=== PATIENT | female | born 1965 | race Caucasian/White ===

== ENCOUNTER → 2020-01-06 13:53 | Outpatient (CLI) | payer OTHER, SELFPAY ==
[2020-01-06 15:20] LABS: Hematocrit 36.3 % (36-46); Hemoglobin 12.7 g/dL (12.0-16.0)
[2020-01-06 16:51] LABS: Alanine Aminotransferase 17 IU/L (<35); Albumin Globulin Ratio 1.5 (1.0-2.8); Alkaline Phosphatase 49 U/L (38-126); Aspartate Aminotransferase 25 IU/L (14-36); Bilirubin Total 0.2 mg/dL (0.2-1.3); Blood Urea Nitrogen 18 mg/dL (7-17); Calcium 9.4 mg/dL (8.4-10.2); Carbon Dioxide 28 mmol/L (22-32); Chloride 103 mmol/L (98-107); Estimated Glomerular Filt Rate > 60.0 mL/min (>60); Globulin 2.6 g/dL (1.7-4.1); Glucose 140 mg/dL (70-100); HEMOLYSIS < 15 (0-50); Potassium 4.2 mmol/L (3.4-5.1); Sodium 138 mmol/L (137-145); Total Protein 6.6 g/dL (6.3-8.2)
[2020-01-06 16:53] LABS: C-Reactive Protein Quant < 0.5 mg/dL (<1.0)
[2020-01-06 16:57] LABS: NT-proBNP (BNP-Adult 18+) 58 pg/mL (<125)
[2020-01-06 17:22] LABS: Thyroid Stimulating Hormone 1.24 uIU/mL (0.47-4.68)
[2020-01-06 18:22] LABS: Erythrocyte Sedimentation Rate 6 MM/HR (0-20)
== END ==
PROVIDERS: PCP Naturopath; Referring Provider Nurse Practitioner Family; Visit Provider Nurse Practitioner Family
DX: R60.0 Localized edema (principal)
CPT/HCPCS: 36415; 80053; 83880; 84443; 85014; 85018; 85651; 86140

== ENCOUNTER → 2020-02-10 14:39 | Outpatient (CLI) | payer OTHER, SELFPAY | PROVIDERS: PCP Naturopath; Referring Provider Internal Medicine; Visit Provider Internal Medicine | DX: M85.88 Other specified disorders of bone density and structure, other site (principal); Z78.0 Asymptomatic menopausal state; C50.911 Malignant neoplasm of unspecified site of right female breast; C77.3 Secondary and unspecified malignant neoplasm of axilla and upper limb lymph nodes | CPT/HCPCS: 77080 ==

== ENCOUNTER → 2022-08-06 15:09 | Outpatient (CLI) | payer OTHER, SELFPAY ==
--- NOTE | 2022-08-06 | DI.MRI.S_ITS ---
PROCEDURE: MR LUMBAR SPINE WO CON INDICATIONS: Radiculopathy, lumbar region TECHNIQUE: Noncontrast sagittal T1 spin echo and T2 fast echo, sagittal STIR, and T2 fast spin echo through the lumbar spine. In cases with scoliosis, additional coronal T2 fast spin echo may be performed. COMPARISON: None. FINDINGS: Image quality: Excellent. Alignment and Curvature: There is normal bony alignment. Bone Marrow: Marrow is of normal overall signal. No acute vertebral body compression fractures. Spinal Cord: Conus medullaris terminates at the L1-L2 level. Visualized cord demonstrates normal signal and size. Paraspinous Soft Tissues: No paravertebral masses. Discs: Minimal to mild desiccation is present throughout the lumbar spine. L1-L2: No disc bulge, spinal stenosis or foraminal narrowing. L2-L3: Minimal disc bulge without spinal stenosis. No foraminal narrowing. Minimal epidural lipomatosis. Mild facet and ligamentum flavum hypertrophy. L3-L4: Minimal disc bulge with minimal spinal stenosis. Minimal bilateral foraminal narrowing with facet and ligamentum flavum hypertrophy. L4-L5: Mild disc bulge with minimal to mild spinal stenosis. Nbah-[id number] right foraminal narrowing with facet and ligamentum flavum hypertrophy. L5-S1: Mild disc bulge with mild spinal stenosis. No foraminal narrowing. IMPRESSION: Early degenerative changes most notable at L4-5. Dictated by: Shayna Levine M.D. on 08/06/2022 at 18:09 Approved by: Shayna Levine M.D. on 08/06/2022 at 18:12
== END ==
PROVIDERS: PCP Nurse Practitioner Family; Referring Provider Nurse Practitioner Family; Visit Provider Nurse Practitioner Family
DX: M47.26 Other spondylosis with radiculopathy, lumbar region (principal)
CPT/HCPCS: 72148

== ENCOUNTER 2024-12-15 15:30 | Outpatient (RCR) | payer OTHER, SELFPAY ==
--- NOTE | 2024-10-06 16:54 | PT.OIE ---
Current Diagnoses Cervicogenic headache (10/06/24) Past Medical History (Last Reviewed 12/20/21 @ 15:00 by Russ Manuel MD) Behaviorally induced insufficient sleep syndrome Obstructive sleep apnea of adult Visit Care Team Role Provider Type MJ Valencia Attending Provider Non-Staff Family Provider Primary Care Provider Referring Provider Specialty: Medical Address: [address] [place] [address], [place], [address] Email: Physical Therapy Initial Evaluation PT-OP-A Visit Information Start: 10/05/24 17:00 Freq: Status: Active Protocol: Document 10/06/24 08:59 MB (Rec: 10/06/24 09:37 MB [id number]) Out-Patient Physical Therapy Visit Information Visit Information Visit Type Initial Evaluation Visit Note Progress note by 11/05/24 Visit Start Time 08:59 Visit Stop Time 09:39 Visit Number 1 Number of WELDING EQUIPMENT SALES REPRESENTATIVE Visits 0 Evaluation Information Evaluation Date 10/06/24 PT-OP-B Current Condition Start: 10/05/24 17:00 Freq: Status: Active Protocol: Document 10/06/24 08:59 MB (Rec: 10/06/24 09:37 MB [id number]) Current Condition History of Current Condition Onset Date 5 years ago Current Complaints Posterior head pain and left ear coldness History of Current Condition Pt had PT in the past and it went well except she injured herself doing the exercises. She might have taken exercises too extreme. She self-dx herself with cervicogenic headache. 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 She went to PT for the groin and it did not help. Her life changed with the pandemic. Pt reports a history of headaches her whole life. They were premenstral and also tension heachaches and headaches up the back of her head. Pt reports left ear cold with headaches. Pt notices postural changes sitting at the computer. Pt sits most of the day at the computer. Pain moves into her left eyeball and she does get nauseated. She is sleeping on her side and back. Pt has tried body work including structural work and myofascial release. Pt had x-rays of cervical spine with findings of mild degeneration. Pt denies changes in dentition , TMJ. She did have a CPAP and she stopped using it d/t she felt she was getting worse sleep. 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 She is using front of teeth bite guard at night. She said she made a groove in it. Pt's vision has not changed. Pt does not report paresthesias on face or in UEs. Headaches start in the early hours of the morning . She notices she awakens in odd sleeping positions such as head extension. She does share bed with partner. PMH includes ACL, uterine fibroid embolism, B mastectomy and breast reconstruction surgeries. She has large scar where soft tissue and skin were moved from abdomen. Treatment Goals Patient/Caregiver Goals To get rid of headaches PT-OP-C Subjective Start: 10/05/24 17:00 Freq: Status: Active Protocol: Document 10/06/24 08:59 MB (Rec: 10/06/24 16:54 MB [id number]) OP-PT Subjective Patient Comments Patient Comments See history of current condition PT-OP-J Posture/Palpation/Skin Start: 10/05/24 17:00 Freq: Status: Active Protocol: Document 10/06/24 08:59 MB (Rec: 10/06/24 09:37 MB [id number]) Posture Evaluation Comments Posture Comments Standing posture in socks: right shoulder mildly lower than the left, B forward, mild Dowager's hump and decreased thoracic kyphosis, more forward on left shoulder, right convexity lower thoracic spine, mild elevated right iliac crest but not much, left adductor attachment more tight than the right PT-OP-K Range of Motion Start: 10/05/24 17:00 Freq: Status: Active Protocol: Document 10/06/24 08:59 MB (Rec: 10/06/24 09:37 MB [id number]) Cervical Spine Range of Motion Cervical Spine Active Testing Position Standing Flexion 40 Extension 30 Rotation Left 60 Rotation Right 60 Lateral Flexion Left 25 Lateral Flexion Right 30 Comments Prefers flexion overpressure in standing, pt's head rests in mild left rotation and right side bend, tends to keep head in mild extension, B elevated and stiff shoulders, feels like lump in front of right throat Shoulder Goniometric Range of Motion Shoulder Bilateral Shoulder ROM WFL Yes Testing Position Standing PT-OP-M Strength Start: 10/05/24 17:00 Freq: Status: Active Protocol: Document 10/06/24 08:59 MB (Rec: 10/06/24 16:54 MB [id number]) Shoulder Strength Shoulder Manual Muscle Testing Bilateral Flexion 5 Normal Abduction (C5) 5 Normal External Rotation 5 Normal Internal Rotation 5 Normal PT-OP-Q Treatments Start: 10/05/24 17:00 Freq: Status: Active Protocol: Document 10/06/24 08:59 MB (Rec: 10/06/24 16:54 MB [id number]) Self-Care/Home Management Treatment Education Patient Education Body Mechanics,Home Exercise Program,Joint Protection,Pain Management,Posture Other Education Education about proper sleeping position with pillow support in side lying and sleeping, proper sitting posture at desk, contributors to fascial tension and presentation, benefits of nasal breathing and taping mouth, benefits of thinking about CPAP assessment by doctor again if needed for apnea given waking up at night with headaches PT-OP-T Assessment and Plan Start: 10/05/24 17:00 Freq: Status: Active Protocol: Document 10/06/24 08:59 MB (Rec: 10/06/24 16:54 MB [id number]) Physical Therapy Assessment Rehab Potential Rehabilitation Potential Good Evaluation Complexity Number of Personal Factors/Comorbidities 1-2 Number of Body Systems Impaired 1-2 Clinical Presentation at Evaluation Evolving Impairments Impairments Edema,Pain,Posture,ROM,Soft Tissue Mobility Goals 2 Impairment Lack of HEP Custodial Goal (LTG) Pt will perform progressive HEP with I including breathing , relaxation, postural, intrascapular, shoulder and core strengthening and balance exercises to improve fascial mobility, pain and sleep. LTG Duration 8 weeks 1 Impairment Headaches awakening her early childhood education coordinator Custodial Goal (LTG) Pt will report at least a 50% improvement in headaches awakening her early childhood education coordinator to improve restorative rest to promote healing. LTG Duration 8 weeks Assessment Summary Assessment Pt is a 58 y/o female presenting with headaches that appear to start in the early childhood education coordinator hours when sleeping and progress during the day during her sitting computer job. She has a history of left adductor attachment pain at pubic ramus, B mastectomies and breast reconstructions, mild MARISEL and stopping use of CPAP. She presents with spinal postural changes today, right nostril is much smaller than the right and less eye opening on the right eye, perhaps indicative of cranial fasical changes, abdominal distention, elevated shoulders, diaphragm and first ribs and decreased ability to nasal and deep breathe using diaphragm. Initiated education today and given headaches starting at night, PT favors sleeping position and possible MARISEL components to headaches. Pt reports eye pressure and pain up the back of her head which may also indicate pressurized head from working posture. Her abdomen is quite firm to palpation. Anticipate breathing training, manual work, postural training and sleeping and ergonomic changes may help patient's symptomology. Barriers include current untreated MARISEL as pt stopped using her machine. Pt sleeps on a wedge pillow for GERD, also of note. Physical Therapy Plan Frequency and Duration Frequency of Treatment 1-2x/wk Duration of treatment (weeks) 8 Plan of Care Start Date 10/06/24 Plan of Care End Date 12/08/24 Therapeutic Interventions Therapeutic Interventions Balance Training,Canalithic Repositioning,Home Exercise Program,Joint Mobilizations, Manual Therapy,Neuromuscular Re-education,Patient/Caregiver Education,Self-Care/Home Management,Soft Tissue Mobilization,Taping, Therapeutic Activities, Therapeutic Exercises Modalities Cold Pack/Ice Massage,Electric Stimulation,Hot Packs, Ultrasound Next Visit Focus/Plan Next Note Type Treatment Note Next Visit Plan Buteyko breathing Manual work and progressive postural training, thoracic mobility exercises, strengthening for intrascapular muscles and shoulders, chin tuck, ergonomic education
--- NOTE | 2024-10-13 09:41 | PT.OTN ---
Current Diagnoses Cervicogenic headache (10/13/24) Physical Therapy Treatment Note PT-OP-A Visit Information Start: 10/05/24 17:00 Freq: Status: Active Protocol: Document 10/13/24 09:00 MB (Rec: 10/13/24 09:40 MB Desktop) Out-Patient Physical Therapy Visit Information Visit Information Visit Type Treatment Note Visit Note Progress note by 11/05/24 Visit Start Time 09:00 Visit Stop Time 09:40 Visit Number 3 Number of JANITORIAL CLEANER Visits 0 Evaluation Information Evaluation Date 10/06/24 PT-OP-B Current Condition Start: 10/05/24 17:00 Freq: Status: Active Protocol: Document 10/06/24 08:59 MB (Rec: 10/06/24 09:37 MB [id number]) Current Condition History of Current Condition Onset Date 5 years ago Current Complaints Posterior head pain and left ear coldness History of Current Condition Pt had PT in the past and it went well except she injured herself doing the exercises. She might have taken exercises too extreme. She self-dx herself with cervicogenic headache. 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 She went to PT for the groin and it did not help. Her life changed with the pandemic. Pt reports a history of headaches her whole life. They were premenstral and also tension heachaches and headaches up the back of her head. Pt reports left ear cold with headaches. Pt notices postural changes sitting at the computer. Pt sits most of the day at the computer. Pain moves into her left eyeball and she does get nauseated. She is sleeping on her side and back. Pt has tried body work including structural work and myofascial release. Pt had x-rays of cervical spine with findings of mild degeneration. Pt denies changes in dentition , TMJ. She did have a CPAP and she stopped using it d/t she felt she was getting worse sleep. 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 She is using front of teeth bite guard at night. She said she made a groove in it. Pt's vision has not changed. Pt does not report paresthesias on face or in UEs. Headaches start in the early hours of the morning . She notices she awakens in odd sleeping positions such as head extension. She does share bed with partner. PMH includes ACL, uterine fibroid embolism, B mastectomy and breast reconstruction surgeries. She has large scar where soft tissue and skin were moved from abdomen. Treatment Goals Patient/Caregiver Goals To get rid of headaches PT-OP-C Subjective Start: 10/05/24 17:00 Freq: Status: Active Protocol: Document 10/13/24 09:00 MB (Rec: 10/13/24 09:40 MB Desktop) OP-PT Subjective Patient Comments Patient Comments Pt may have felt a little looser after PT treatment. Headaches are not great. She had one Friday morning and she got rid of it in an hour and this isn't normal. She did heat and ibuprofen. PT-OP-J Posture/Palpation/Skin Start: 10/05/24 17:00 Freq: Status: Active Protocol: Document 10/06/24 08:59 MB (Rec: 10/06/24 09:37 MB [id number]) Posture Evaluation Comments Posture Comments Standing posture in socks: right shoulder mildly lower than the left, B forward, mild Dowager's hump and decreased thoracic kyphosis, more forward on left shoulder, right convexity lower thoracic spine, mild elevated right iliac crest but not much, left adductor attachment more tight than the right PT-OP-K Range of Motion Start: 10/05/24 17:00 Freq: Status: Active Protocol: Document 10/06/24 08:59 MB (Rec: 10/06/24 09:37 MB [id number]) Cervical Spine Range of Motion Cervical Spine Active Testing Position Standing Flexion 40 Extension 30 Rotation Left 60 Rotation Right 60 Lateral Flexion Left 25 Lateral Flexion Right 30 Comments Prefers flexion overpressure in standing, pt's head rests in mild left rotation and right side bend, tends to keep head in mild extension, B elevated and stiff shoulders, feels like lump in front of right throat Shoulder Goniometric Range of Motion Shoulder Bilateral Shoulder ROM WFL Yes Testing Position Standing PT-OP-M Strength Start: 10/05/24 17:00 Freq: Status: Active Protocol: Document 10/06/24 08:59 MB (Rec: 10/06/24 16:54 MB [id number]) Shoulder Strength Shoulder Manual Muscle Testing Bilateral Flexion 5 Normal Abduction (C5) 5 Normal External Rotation 5 Normal Internal Rotation 5 Normal PT-OP-Q Treatments Start: 10/05/24 17:00 Freq: Status: Active Protocol: Document 10/13/24 09:00 MB (Rec: 10/13/24 09:40 MB Desktop) Therapeutic Exercises Supine Exercises Buteyko breathing Supine Exercise Name HEP and handouts given Comments 6 reps today after training and see assessment notes Manual Therapy Treatment Consent Patient gave verbal consent for manual Yes treatment Other Other Manual Treatments Pt supine with head and legs supported by pillows and towel roll under neck and pt's mouth taped: grade II first rib mobs, cervical PA mobs and upglides, left first rib most tight and right upper cervical vertebrae, STM B upper traps, infra, cervical paraspinals and SCM. Neuro Re-Education Treatment Other Activities Diaphragm and nasal breathing Comments Engaging parasympathetic system via diaphragm mobility with inhalation and exhalation through the nose and using nitric oxide and CO2 exhange to improve parasympathetic engagement, tongue ease to roof of mouth, imagery to let jaw relax and tension to seep out of face, mouth, cranium and melt into mat PT-OP-T Assessment and Plan Start: 10/05/24 17:00 Freq: Status: Active Protocol: Document 10/13/24 09:00 MB (Rec: 10/13/24 09:40 MB Desktop) Physical Therapy Assessment Rehab Potential Rehabilitation Potential Good Evaluation Complexity Number of Personal Factors/Comorbidities 1-2 Number of Body Systems Impaired 1-2 Clinical Presentation at Evaluation Evolving Impairments Impairments Edema,Pain,Posture,ROM,Soft Tissue Mobility Goals 2 Impairment Lack of HEP Prison Goal (LTG) Pt will perform progressive HEP with I including breathing , relaxation, postural, intrascapular, shoulder and core strengthening and balance exercises to improve fascial mobility, pain and sleep. 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 LTG Duration 8 weeks Assessment Summary Assessment Buteyko breathing education, training and performance with pt in supine with head and legs supported with HR and O2 sats before treatment: 99% and 57 BPM. 1st rep: 18 sec and O2 sats 99% and HR 56 BPM; 2nd rep: 12 sec and O2 sats 99% and HR 55 BPM; 3rd rep: 11 sec and O2 sats 99% and HR 54 BPM ; cues for slowing breathing as pt RR con't to be high and she gets down to 13 reps per minute. 4th rep: 13 sec and O2 sats 97% and HR 54 BPM; RR and diaphragm breathing better and O2 98% and HR 54 BPM over 2 minutes; 5th rep: 10 sec and O2 sats 97% and HR 55 BPM; 6th rep: 12 sec and O2 sats 97% and HR 54 BPM. Overall, HR is best with gentle nasal and diaphragm breathing between breaths. She is able to keep HR between 53-54 BPM with breathing as such in supine. Overall posture is rigid as far as barrel chest and elevated and stiff shoulders in supine and standing at start of treatment. Pt tends to have a smile on her face and she wonders if this is part of her clenching issue. Physical Therapy Plan Frequency and Duration Frequency of Treatment 1-2x/wk Duration of treatment (weeks) 8 Plan of Care Start Date 10/06/24 Plan of Care End Date 12/08/24 Therapeutic Interventions Therapeutic Interventions Balance Training,Canalithic Repositioning,Home Exercise Program,Joint Mobilizations, Manual Therapy,Neuromuscular Re-education,Patient/Caregiver Education,Self-Care/Home Management,Soft Tissue Mobilization,Taping, Therapeutic Activities, Therapeutic Exercises Modalities Cold Pack/Ice Massage,Electric Stimulation,Hot Packs, Ultrasound Next Visit Focus/Plan Next Note Type Treatment Note Next Visit Plan Ongoing manual work and consider taping mouth during and working on nasal breathing , also consider side lying treatment/rib recoil Progressive postural training, thoracic mobility exercises, strengthening for intrascapular muscles and shoulders, chin tuck, ergonomic education
--- NOTE | 2024-10-13 11:00 | PT.OTN ---
Addendum entered and electronically signed by Rosi Coronado PT 10/13/24 13:56: Plan for 10/11/2024 note: next visit with Maren for Buteyko breathing education Original Note: Current Diagnoses Cervicogenic headache (10/13/24) Physical Therapy Treatment Note PT-OP-A Visit Information Start: 10/05/24 17:00 Freq: Status: Active Protocol: Document 10/13/24 09:00 MB (Rec: 10/13/24 09:40 MB Desktop) Out-Patient Physical Therapy Visit Information Visit Information Visit Type Treatment Note Visit Note Progress note by 11/05/24 Visit Start Time 09:00 Visit Stop Time 09:40 Visit Number 3 Number of COAT HANGER SHAPER MACHINE OPERATOR Visits 0 Evaluation Information Evaluation Date 10/06/24 PT-OP-B Current Condition Start: 10/05/24 17:00 Freq: Status: Active Protocol: Document 10/06/24 08:59 MB (Rec: 10/06/24 09:37 MB [id number]) Current Condition History of Current Condition Onset Date 5 years ago Current Complaints Posterior head pain and left ear coldness History of Current Condition Pt had PT in the past and it went well except she injured herself doing the exercises. She might have taken exercises too extreme. She self-dx herself with cervicogenic headache. 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 She went to PT for the groin and it did not help. Her life changed with the pandemic. Pt reports a history of headaches her whole life. They were premenstral and also tension heachaches and headaches up the back of her head. Pt reports left ear cold with headaches. Pt notices postural changes sitting at the computer. Pt sits most of the day at the computer. Pain moves into her left eyeball and she does get nauseated. She is sleeping on her side and back. Pt has tried body work including structural work and myofascial release. Pt had x-rays of cervical spine with findings of mild degeneration. Pt denies changes in dentition , TMJ. She did have a CPAP and she stopped using it d/t she felt she was getting worse sleep. 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 She is using front of teeth bite guard at night. She said she made a groove in it. Pt's vision has not changed. Pt does not report paresthesias on face or in UEs. Headaches start in the early hours of the morning . She notices she awakens in odd sleeping positions such as head extension. She does share bed with partner. PMH includes ACL, uterine fibroid embolism, B mastectomy and breast reconstruction surgeries. She has large scar where soft tissue and skin were moved from abdomen. Treatment Goals Patient/Caregiver Goals To get rid of headaches PT-OP-C Subjective Start: 10/05/24 17:00 Freq: Status: Active Protocol: Document 10/13/24 09:00 MB (Rec: 10/13/24 09:40 MB Desktop) OP-PT Subjective Patient Comments Patient Comments Pt may have felt a little looser after PT treatment. Headaches are not great. She had one Friday morning and she got rid of it in an hour and this isn't normal. She did heat and ibuprofen. PT-OP-J Posture/Palpation/Skin Start: 10/05/24 17:00 Freq: Status: Active Protocol: Document 10/06/24 08:59 MB (Rec: 10/06/24 09:37 MB [id number]) Posture Evaluation Comments Posture Comments Standing posture in socks: right shoulder mildly lower than the left, B forward, mild Dowager's hump and decreased thoracic kyphosis, more forward on left shoulder, right convexity lower thoracic spine, mild elevated right iliac crest but not much, left adductor attachment more tight than the right PT-OP-K Range of Motion Start: 10/05/24 17:00 Freq: Status: Active Protocol: Document 10/06/24 08:59 MB (Rec: 10/06/24 09:37 MB [id number]) Cervical Spine Range of Motion Cervical Spine Active Testing Position Standing Flexion 40 Extension 30 Rotation Left 60 Rotation Right 60 Lateral Flexion Left 25 Lateral Flexion Right 30 Comments Prefers flexion overpressure in standing, pt's head rests in mild left rotation and right side bend, tends to keep head in mild extension, B elevated and stiff shoulders, feels like lump in front of right throat Shoulder Goniometric Range of Motion Shoulder Bilateral Shoulder ROM WFL Yes Testing Position Standing PT-OP-M Strength Start: 10/05/24 17:00 Freq: Status: Active Protocol: Document 10/06/24 08:59 MB (Rec: 10/06/24 16:54 MB [id number]) Shoulder Strength Shoulder Manual Muscle Testing Bilateral Flexion 5 Normal Abduction (C5) 5 Normal External Rotation 5 Normal Internal Rotation 5 Normal PT-OP-Q Treatments Start: 10/05/24 17:00 Freq: Status: Active Protocol: Document 10/13/24 09:00 MB (Rec: 10/13/24 09:40 MB Desktop) Therapeutic Exercises Supine Exercises Buteyko breathing Supine Exercise Name HEP and handouts given Comments 6 reps today after training and see assessment notes Manual Therapy Treatment Consent Patient gave verbal consent for manual Yes treatment Other Other Manual Treatments Pt supine with head and legs supported by pillows and towel roll under neck and pt's mouth taped: grade II first rib mobs, cervical PA mobs and upglides, left first rib most tight and right upper cervical vertebrae, STM B upper traps, infra, cervical paraspinals and SCM. Neuro Re-Education Treatment Other Activities Diaphragm and nasal breathing Comments Engaging parasympathetic system via diaphragm mobility with inhalation and exhalation through the nose and using nitric oxide and CO2 exhange to improve parasympathetic engagement, tongue ease to roof of mouth, imagery to let jaw relax and tension to seep out of face, mouth, cranium and melt into mat PT-OP-T Assessment and Plan Start: 10/05/24 17:00 Freq: Status: Active Protocol: Document 10/13/24 09:00 MB (Rec: 10/13/24 09:40 MB Desktop) Physical Therapy Assessment Rehab Potential Rehabilitation Potential Good Evaluation Complexity Number of Personal Factors/Comorbidities 1-2 Number of Body Systems Impaired 1-2 Clinical Presentation at Evaluation Evolving Impairments Impairments Edema,Pain,Posture,ROM,Soft Tissue Mobility Goals 2 Impairment Lack of HEP Rail Setter Goal (LTG) Pt will perform progressive HEP with I including breathing , relaxation, postural, intrascapular, shoulder and core strengthening and balance exercises to improve fascial mobility, pain and sleep. LTG Duration 8 weeks 1 Impairment Headaches awakening her html developer Rail Setter Goal (LTG) Pt will report at least a 50% improvement in headaches awakening her html developer to improve restorative rest to promote healing. LTG Duration 8 weeks Assessment Summary Assessment Buteyko breathing education, training and performance with pt in supine with head and legs supported with HR and O2 sats before treatment: 99% and 57 BPM. 1st rep: 18 sec and O2 sats 99% and HR 56 BPM; 2nd rep: 12 sec and O2 sats 99% and HR 55 BPM; 3rd rep: 11 sec and O2 sats 99% and HR 54 BPM ; cues for slowing breathing as pt RR con't to be high and she gets down to 13 reps per minute. 4th rep: 13 sec and O2 sats 97% and HR 54 BPM; RR and diaphragm breathing better and O2 98% and HR 54 BPM over 2 minutes; 5th rep: 10 sec and O2 sats 97% and HR 55 BPM; 6th rep: 12 sec and O2 sats 97% and HR 54 BPM. Overall, HR is best with gentle nasal and diaphragm breathing between breaths. She is able to keep HR between 53-54 BPM with breathing as such in supine. Overall posture is rigid as far as barrel chest and elevated and stiff shoulders in supine and standing at start of treatment. Pt tends to have a smile on her face and she wonders if this is part of her clenching issue. Physical Therapy Plan Frequency and Duration Frequency of Treatment 1-2x/wk Duration of treatment (weeks) 8 Plan of Care Start Date 10/06/24 Plan of Care End Date 12/08/24 Therapeutic Interventions Therapeutic Interventions Balance Training,Canalithic Repositioning,Home Exercise Program,Joint Mobilizations, Manual Therapy,Neuromuscular Re-education,Patient/Caregiver Education,Self-Care/Home Management,Soft Tissue Mobilization,Taping, Therapeutic Activities, Therapeutic Exercises Modalities Cold Pack/Ice Massage,Electric Stimulation,Hot Packs, Ultrasound Next Visit Focus/Plan Next Note Type Treatment Note Next Visit Plan Ongoing manual work and consider taping mouth during and working on nasal breathing , also consider side lying treatment/rib recoil Progressive postural training, thoracic mobility exercises, strengthening for intrascapular muscles and shoulders, chin tuck, ergonomic education
--- NOTE | 2024-10-18 17:02 | PT.OTN ---
Current Diagnoses Cervicogenic headache (10/18/24) Physical Therapy Treatment Note PT-OP-A Visit Information Start: 10/05/24 17:00 Freq: Status: Active Protocol: Document 10/18/24 16:19 KW (Rec: 10/18/24 17:01 KW Laptop) Out-Patient Physical Therapy Visit Information Visit Information Visit Type Treatment Note Visit Start Time 16:15 Visit Stop Time 17:00 Visit Number 5 Number of IT COORDINATOR Visits 0 Evaluation Information Evaluation Date 10/06/24 PT-OP-B Current Condition Start: 10/05/24 17:00 Freq: Status: Active Protocol: Document 10/06/24 08:59 MB (Rec: 10/06/24 09:37 MB [id number]) Current Condition History of Current Condition Onset Date 5 years ago Current Complaints Posterior head pain and left ear coldness History of Current Condition Pt had PT in the past and it went well except she injured herself doing the exercises. She might have taken exercises too extreme. She self-dx herself with cervicogenic headache. 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 She went to PT for the groin and it did not help. Her life changed with the pandemic. Pt reports a history of headaches her whole life. They were premenstral and also tension heachaches and headaches up the back of her head. Pt reports left ear cold with headaches. Pt notices postural changes sitting at the computer. Pt sits most of the day at the computer. Pain moves into her left eyeball and she does get nauseated. She is sleeping on her side and back. Pt has tried body work including structural work and myofascial release. Pt had x-rays of cervical spine with findings of mild degeneration. Pt denies changes in dentition , TMJ. She did have a CPAP and she stopped using it d/t she felt she was getting worse sleep. 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 She is using front of teeth bite guard at night. She said she made a groove in it. Pt's vision has not changed. Pt does not report paresthesias on face or in UEs. Headaches start in the early hours of the morning . She notices she awakens in odd sleeping positions such as head extension. She does share bed with partner. PMH includes ACL, uterine fibroid embolism, B mastectomy and breast reconstruction surgeries. She has large scar where soft tissue and skin were moved from abdomen. Treatment Goals Patient/Caregiver Goals To get rid of headaches PT-OP-C Subjective Start: 10/05/24 17:00 Freq: Status: Active Protocol: Document 10/18/24 16:19 KW (Rec: 10/18/24 17:01 KW Laptop) OP-PT Subjective Patient Comments Patient Comments woke with 4/10 singleton that lasted 4 hrs did some boat sanding yesterday but improved her body mechanics PT-OP-J Posture/Palpation/Skin Start: 10/05/24 17:00 Freq: Status: Active Protocol: Document 10/06/24 08:59 MB (Rec: 10/06/24 09:37 MB [id number]) Posture Evaluation Comments Posture Comments Standing posture in socks: right shoulder mildly lower than the left, B forward, mild Dowager's hump and decreased thoracic kyphosis, more forward on left shoulder, right convexity lower thoracic spine, mild elevated right iliac crest but not much, left adductor attachment more tight than the right PT-OP-K Range of Motion Start: 10/05/24 17:00 Freq: Status: Active Protocol: Document 10/06/24 08:59 MB (Rec: 10/06/24 09:37 MB [id number]) Cervical Spine Range of Motion Cervical Spine Active Testing Position Standing Flexion 40 Extension 30 Rotation Left 60 Rotation Right 60 Lateral Flexion Left 25 Lateral Flexion Right 30 Comments Prefers flexion overpressure in standing, pt's head rests in mild left rotation and right side bend, tends to keep head in mild extension, B elevated and stiff shoulders, feels like lump in front of right throat Shoulder Goniometric Range of Motion Shoulder Bilateral Shoulder ROM WFL Yes Testing Position Standing PT-OP-M Strength Start: 10/05/24 17:00 Freq: Status: Active Protocol: Document 10/06/24 08:59 MB (Rec: 10/06/24 16:54 MB [id number]) Shoulder Strength Shoulder Manual Muscle Testing Bilateral Flexion 5 Normal Abduction (C5) 5 Normal External Rotation 5 Normal Internal Rotation 5 Normal PT-OP-Q Treatments Start: 10/05/24 17:00 Freq: Status: Active Protocol: Document 10/18/24 16:19 KW (Rec: 10/18/24 17:01 KW Laptop) Therapeutic Exercises Sitting Exercises 1 Sitting Exercise Name UBE Reps/Minutes 4 Comments 2fw/2bw Standing Exercises 3 Standing Exercise Name wall slides with pillow case Reps/Minutes 10 Comments low trap pull away 2 Standing Exercise Name standing rows and straight arm pulls Resistance purple Reps/Minutes 15 ea Comments cues for low traps 1 Standing Exercise Name wall push ups Reps/Minutes 15 Comments cues for breathing Other Exercises bushra pose latt stretch Other Exercise Name bushra pose then R and L sides Comments emphasis for lateral expansion of rib cage, posterior expansion modified cat/cow Other Exercise Name all fours cat Reps/Minutes 5 Comments holding cat pose, allowing for posterior/lateral rib expansion Manual Therapy Treatment Consent Patient gave verbal consent for manual Yes treatment Soft Tissue Mobilization cervical spine Body Location STM/MFR, trigger point release Intensity/Depth Moderate Body Position Supine Comments upper cervical SO traction, STM: B upper traps, SO, scalenes, SCM Joint Mobilizations ribcage Joint supine and sidelying rib mobs, Prone PAs T-spine Comments general ribcage mobilization with coordinated exhale, lateral glides, diaphragm release, sternal repositioning Other Other Manual Treatments tennis ball to wall self mobilization PT-OP-T Assessment and Plan Start: 10/05/24 17:00 Freq: Status: Active Protocol: Document 10/18/24 16:19 KW (Rec: 10/18/24 17:01 KW Laptop) Physical Therapy Assessment Rehab Potential Rehabilitation Potential Good Goals 2 Impairment Lack of HEP Spa Experience Coordinator Goal (LTG) Pt will perform progressive HEP with I including breathing , relaxation, postural, intrascapular, shoulder and core strengthening and balance exercises to improve fascial mobility, pain and sleep. LTG Duration 8 weeks 1 Impairment Headaches awakening her experimental technician Mcc Goal (LTG) Pt will report at least a 50% improvement in headaches awakening her experimental technician to improve restorative rest to promote healing. LTG Duration 8 weeks Assessment Summary Assessment patient had good relief with T -spine mobilization. good form with low trap activation in standing and prone. Anticipate stress is playing into her HAs.
--- NOTE | 2024-10-20 10:32 | PT.OTN ---
Current Diagnoses Cervicogenic headache (10/20/24) Physical Therapy Treatment Note PT-OP-A Visit Information Start: 10/05/24 17:00 Freq: Status: Active Protocol: Document 10/20/24 09:46 SP (Rec: 10/20/24 10:43 SP Laptop) Out-Patient Physical Therapy Visit Information Visit Information Visit Type Treatment Note Visit Note SPTA Velia assisted with manual and ther ex instruction while under direct instruction of SURVEY CHIEF Sydney Visit Start Time 09:46 Visit Stop Time 10:32 Visit Number 6 Number of SURVEY CHIEF Visits 1 Evaluation Information Evaluation Date 10/06/24 Precautions Precautions none PT-OP-B Current Condition Start: 10/05/24 17:00 Freq: Status: Active Protocol: Document 10/06/24 08:59 MB (Rec: 10/06/24 09:37 MB [id number]) Current Condition History of Current Condition Onset Date 5 years ago Current Complaints Posterior head pain and left ear coldness History of Current Condition Pt had PT in the past and it went well except she injured herself doing the exercises. She might have taken exercises too extreme. She self-dx herself with cervicogenic headache. 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 She went to PT for the groin and it did not help. Her life changed with the pandemic. Pt reports a history of headaches her whole life. They were premenstral and also tension heachaches and headaches up the back of her head. Pt reports left ear cold with headaches. Pt notices postural changes sitting at the computer. Pt sits most of the day at the computer. Pain moves into her left eyeball and she does get nauseated. She is sleeping on her side and back. Pt has tried body work including structural work and myofascial release. Pt had x-rays of cervical spine with findings of mild degeneration. Pt denies changes in dentition , TMJ. She did have a CPAP and she stopped using it d/t she felt she was getting worse sleep. 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 She is using front of teeth bite guard at night. She said she made a groove in it. Pt's vision has not changed. Pt does not report paresthesias on face or in UEs. Headaches start in the early hours of the morning . She notices she awakens in odd sleeping positions such as head extension. She does share bed with partner. PMH includes ACL, uterine fibroid embolism, B mastectomy and breast reconstruction surgeries. She has large scar where soft tissue and skin were moved from abdomen. Treatment Goals Patient/Caregiver Goals To get rid of headaches PT-OP-C Subjective Start: 10/05/24 17:00 Freq: Status: Active Protocol: Document 10/20/24 09:46 SP (Rec: 10/20/24 10:43 SP Laptop) OP-PT Subjective Patient Comments Patient Comments Pt reported felt ok after last tx. Performing breathing HEP, report was challenged with instructions use of foam roller last tx. Pt reports sometimes L ear goes cold when have headaches. PT-OP-J Posture/Palpation/Skin Start: 10/05/24 17:00 Freq: Status: Active Protocol: Document 10/06/24 08:59 MB (Rec: 10/06/24 09:37 MB [id number]) Posture Evaluation Comments Posture Comments Standing posture in socks: right shoulder mildly lower than the left, B forward, mild Dowager's hump and decreased thoracic kyphosis, more forward on left shoulder, right convexity lower thoracic spine, mild elevated right iliac crest but not much, left adductor attachment more tight than the right PT-OP-K Range of Motion Start: 10/05/24 17:00 Freq: Status: Active Protocol: Document 10/06/24 08:59 MB (Rec: 10/06/24 09:37 MB [id number]) Cervical Spine Range of Motion Cervical Spine Active Testing Position Standing Flexion 40 Extension 30 Rotation Left 60 Rotation Right 60 Lateral Flexion Left 25 Lateral Flexion Right 30 Comments Prefers flexion overpressure in standing, pt's head rests in mild left rotation and right side bend, tends to keep head in mild extension, B elevated and stiff shoulders, feels like lump in front of right throat Shoulder Goniometric Range of Motion Shoulder Bilateral Shoulder ROM WFL Yes Testing Position Standing PT-OP-M Strength Start: 10/05/24 17:00 Freq: Status: Active Protocol: Document 10/06/24 08:59 MB (Rec: 10/06/24 16:54 MB [id number]) Shoulder Strength Shoulder Manual Muscle Testing Bilateral Flexion 5 Normal Abduction (C5) 5 Normal External Rotation 5 Normal Internal Rotation 5 Normal PT-OP-Q Treatments Start: 10/05/24 17:00 Freq: Status: Active Protocol: Document 10/20/24 09:46 SP (Rec: 10/20/24 10:43 SP Laptop) Therapeutic Exercises Standing Exercises 3 Standing Exercise Name wall slides with pillow case Side bilateral Reps/Minutes 20 Comments cued chest toward wall with reps improved FF glide 2 Standing Exercise Name standing rows and straight arm pulls Resistance purple inPT (dark blue latex home) Reps/Minutes 2x15 ea Comments cues for low traps Other Exercises Self STMs Other Exercise Name supine ball MWM and self SCM pincer kneading Comments next tx show theracane MWM posterior neck Manual Therapy Treatment Consent Patient gave verbal consent for manual Yes treatment Soft Tissue Mobilization cervical spine Body Location SOR, UT, SCM, Scalenes, LS Intensity/Depth Moderate Body Position Supine Comments STM/MFR, upper cervical SO traction, ed for self application with SCM L>R tension and MWM Joint Mobilizations ribcage Joint sidelying rib mobs Body Position supine, SL Comments general ribcage mobilization with coordinated exhale, inhale recoil, diaphragm release Other Other Manual Treatments supine with head and legs supported by pillows and towel roll under neck, SL: under head, between BLEs PT-OP-T Assessment and Plan Start: 10/05/24 17:00 Freq: Status: Active Protocol: Document 10/20/24 09:46 SP (Rec: 10/20/24 10:43 SP Laptop) Physical Therapy Assessment Goals 2 Impairment Lack of HEP Braze Operator Goal (LTG) Pt will perform progressive HEP with I including breathing , relaxation, postural, intrascapular, shoulder and core strengthening and balance exercises to improve fascial mobility, pain and sleep. LTG Duration 8 weeks 1 Impairment Headaches awakening her workers compensation analyst Braze Operator Goal (LTG) Pt will report at least a 50% improvement in headaches awakening her workers compensation analyst to improve restorative rest to promote healing. LTG Duration 8 weeks Assessment Summary Assessment Pt responded well to manual, provided rows and ext for HEP with HO and TB. Cues for targeting LTs, reported scapular and ribcage mobility with breath. Improved range during wall slides. Physical Therapy Plan Frequency and Duration Frequency of Treatment 1-2x/wk Duration of treatment (weeks) 8 Plan of Care Start Date 10/06/24 Plan of Care End Date 12/08/24 Therapeutic Interventions Therapeutic Interventions Balance Training,Canalithic Repositioning,Home Exercise Program,Joint Mobilizations, Manual Therapy,Neuromuscular Re-education,Patient/Caregiver Education,Self-Care/Home Management,Soft Tissue Mobilization,Taping, Therapeutic Activities, Therapeutic Exercises Modalities Cold Pack/Ice Massage,Electric Stimulation,Hot Packs, Ultrasound Next Visit Focus/Plan Next Note Type Treatment Note Next Visit Plan Next add open book. Ongoing manual work and consider taping mouth during and working on nasal breathing, Continue side lying treatment/ rib recoil Progressive postural training, thoracic mobility exercises, strengthening for intrascapular muscles and shoulders, chin tuck, ergonomic education
--- NOTE | 2024-11-02 16:14 | PT.OTN ---
Current Diagnoses Cervicogenic headache (11/02/24) Physical Therapy Treatment Note PT-OP-A Visit Information Start: 10/05/24 17:00 Freq: Status: Active Protocol: Document 11/02/24 15:18 MB (Rec: 11/02/24 15:44 MB Desktop) Out-Patient Physical Therapy Visit Information Visit Information Visit Type Progress Note Visit Start Time 15:18 Visit Stop Time 15:58 Visit Number 7 Number of DIESEL MOTOR MECHANIC Visits 0 Evaluation Information Evaluation Date 10/06/24 Precautions Precautions none PT-OP-B Current Condition Start: 10/05/24 17:00 Freq: Status: Active Protocol: Document 10/06/24 08:59 MB (Rec: 10/06/24 09:37 MB [id number]) Current Condition History of Current Condition Onset Date 5 years ago Current Complaints Posterior head pain and left ear coldness History of Current Condition Pt had PT in the past and it went well except she injured herself doing the exercises. She might have taken exercises too extreme. She self-dx herself with cervicogenic headache. 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 She went to PT for the groin and it did not help. Her life changed with the pandemic. Pt reports a history of headaches her whole life. They were premenstral and also tension heachaches and headaches up the back of her head. Pt reports left ear cold with headaches. Pt notices postural changes sitting at the computer. Pt sits most of the day at the computer. Pain moves into her left eyeball and she does get nauseated. She is sleeping on her side and back. Pt has tried body work including structural work and myofascial release. Pt had x-rays of cervical spine with findings of mild degeneration. Pt denies changes in dentition , TMJ. She did have a CPAP and she stopped using it d/t she felt she was getting worse sleep. 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 She is using front of teeth bite guard at night. She said she made a groove in it. Pt's vision has not changed. Pt does not report paresthesias on face or in UEs. Headaches start in the early hours of the morning . She notices she awakens in odd sleeping positions such as head extension. She does share bed with partner. PMH includes ACL, uterine fibroid embolism, B mastectomy and breast reconstruction surgeries. She has large scar where soft tissue and skin were moved from abdomen. Treatment Goals Patient/Caregiver Goals To get rid of headaches PT-OP-C Subjective Start: 10/05/24 17:00 Freq: Status: Active Protocol: Document 11/02/24 15:18 MB (Rec: 11/02/24 15:44 MB Desktop) OP-PT Subjective Patient Comments Patient Comments Pt had a headache for about 36 hours of the weekend and ibuprofen did not make a difference. She tries to be aware of posture and it is a process. She is doing breathing before she falls asleep and then if she wakes up at night. Most of the headaches still occur early hours. The frequency of headaches is every couple of weeks. 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 She has not tried taping. PT-OP-J Posture/Palpation/Skin Start: 10/05/24 17:00 Freq: Status: Active Protocol: Document 10/06/24 08:59 MB (Rec: 10/06/24 09:37 MB [id number]) Posture Evaluation Comments Posture Comments Standing posture in socks: right shoulder mildly lower than the left, B forward, mild Dowager's hump and decreased thoracic kyphosis, more forward on left shoulder, right convexity lower thoracic spine, mild elevated right iliac crest but not much, left adductor attachment more tight than the right PT-OP-K Range of Motion Start: 10/05/24 17:00 Freq: Status: Active Protocol: Document 10/06/24 08:59 MB (Rec: 10/06/24 09:37 MB [id number]) Cervical Spine Range of Motion Cervical Spine Active Testing Position Standing Flexion 40 Extension 30 Rotation Left 60 Rotation Right 60 Lateral Flexion Left 25 Lateral Flexion Right 30 Comments Prefers flexion overpressure in standing, pt's head rests in mild left rotation and right side bend, tends to keep head in mild extension, B elevated and stiff shoulders, feels like lump in front of right throat Shoulder Goniometric Range of Motion Shoulder Bilateral Shoulder ROM WFL Yes Testing Position Standing PT-OP-M Strength Start: 10/05/24 17:00 Freq: Status: Active Protocol: Document 10/06/24 08:59 MB (Rec: 10/06/24 16:54 MB [id number]) Shoulder Strength Shoulder Manual Muscle Testing Bilateral Flexion 5 Normal Abduction (C5) 5 Normal External Rotation 5 Normal Internal Rotation 5 Normal PT-OP-Q Treatments Start: 10/05/24 17:00 Freq: Status: Active Protocol: Document 11/02/24 15:18 MB (Rec: 11/02/24 16:14 MB Desktop) Therapeutic Exercises Supine Exercises 6 foam roller exercise Supine Exercise Name HEP and handout today Side bilateral Equipment Used 6 foam roller Reps/Minutes 10 reps AROM exercises, 2 reps stretches Comments Feet bent, pelvic tilt and core tight, head on foam roller Sidelying Exercises open book Sidelying Exercise Name HEP and handout today Side bilateral Equipment Used 6 foam roller between legs, pillow doubled under head Reps/Minutes 6 reps each side Comments Tighter left shoulder Manual Therapy Treatment Consent Patient gave verbal consent for manual Yes treatment Other Other Manual Treatments Pt prone: thoracic spine recoil muscle energy technique , rib mobs, B scapular mobs and STM B upper traps and cervical paraspinals PT-OP-T Assessment and Plan Start: 10/05/24 17:00 Freq: Status: Active Protocol: Document 11/02/24 15:18 MB (Rec: 11/02/24 15:44 MB Desktop) Physical Therapy Assessment Goals 2 Impairment Lack of HEP Glaze Handler Goal (LTG) Pt will perform progressive HEP with I including breathing , relaxation, postural, intrascapular, shoulder and core strengthening and balance exercises to improve fascial mobility, pain and sleep. 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 11/02/24: Pt reports no improvement of headaches since starting PT LTG Duration 8 weeks Assessment Summary Assessment Pt has not had any improvement in headaches since starting PT. The headaches con't to start around 3 a.m. She has history of sleep apnea and does not wear CPAP. Manual PT today revealed increased tension thoracic spine and upper ribs and mobility improved traps tension and pain today. Overall, pt tends to move as a unit in neck and shoulders and so mobilizing thoracic spine is helpful for this. Physical Therapy Plan Frequency and Duration Frequency of Treatment 1-2x/wk Duration of treatment (weeks) 8 Plan of Care Start Date 10/06/24 Plan of Care End Date 12/08/24 Therapeutic Interventions Therapeutic Interventions Balance Training,Canalithic Repositioning,Home Exercise Program,Joint Mobilizations, Manual Therapy,Neuromuscular Re-education,Patient/Caregiver Education,Self-Care/Home Management,Soft Tissue Mobilization,Taping, Therapeutic Activities, Therapeutic Exercises Modalities Cold Pack/Ice Massage,Electric Stimulation,Hot Packs, Ultrasound Next Visit Focus/Plan Next Note Type Treatment Note Next Visit Plan Con't manual work and consider taping mouth during and working on nasal breathing, Continue side lying treatment/ rib recoil Progressive postural training, thoracic mobility exercises, strengthening for intrascapular muscles and shoulders, chin tuck, ergonomic education
--- NOTE | 2024-11-04 09:48 | PT.OTN ---
Current Diagnoses Cervicogenic headache (11/04/24) Physical Therapy Treatment Note PT-OP-A Visit Information Start: 10/05/24 17:00 Freq: Status: Active Protocol: Document 11/04/24 09:04 SP (Rec: 11/04/24 09:50 SP [id number]) Out-Patient Physical Therapy Visit Information Visit Information Visit Type Treatment Note Visit Start Time 09:04 Visit Stop Time 09:48 Visit Number 8 Number of CORE INSERTER Visits 1 Evaluation Information Evaluation Date 10/06/24 Precautions Precautions none PT-OP-B Current Condition Start: 10/05/24 17:00 Freq: Status: Active Protocol: Document 10/06/24 08:59 MB (Rec: 10/06/24 09:37 MB [id number]) Current Condition History of Current Condition Onset Date 5 years ago Current Complaints Posterior head pain and left ear coldness History of Current Condition Pt had PT in the past and it went well except she injured herself doing the exercises. She might have taken exercises too extreme. She self-dx herself with cervicogenic headache. 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 She went to PT for the groin and it did not help. Her life changed with the pandemic. Pt reports a history of headaches her whole life. They were premenstral and also tension heachaches and headaches up the back of her head. Pt reports left ear cold with headaches. Pt notices postural changes sitting at the computer. Pt sits most of the day at the computer. Pain moves into her left eyeball and she does get nauseated. She is sleeping on her side and back. Pt has tried body work including structural work and myofascial release. Pt had x-rays of cervical spine with findings of mild degeneration. Pt denies changes in dentition , TMJ. She did have a CPAP and she stopped using it d/t she felt she was getting worse sleep. 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 She is using front of teeth bite guard at night. She said she made a groove in it. Pt's vision has not changed. Pt does not report paresthesias on face or in UEs. Headaches start in the early hours of the morning . She notices she awakens in odd sleeping positions such as head extension. She does share bed with partner. PMH includes ACL, uterine fibroid embolism, B mastectomy and breast reconstruction surgeries. She has large scar where soft tissue and skin were moved from abdomen. Treatment Goals Patient/Caregiver Goals To get rid of headaches PT-OP-C Subjective Start: 10/05/24 17:00 Freq: Status: Active Protocol: Document 11/04/24 09:04 SP (Rec: 11/04/24 09:50 SP [id number]) OP-PT Subjective Patient Comments Patient Comments Pt reports neck feeling stiff. SHe had a 36 hr headache over the weekend. She felt really good after last tx with manual . She wants to review last added HEP over noodle, felt confused at home. PT-OP-J Posture/Palpation/Skin Start: 10/05/24 17:00 Freq: Status: Active Protocol: Document 10/06/24 08:59 MB (Rec: 10/06/24 09:37 MB [id number]) Posture Evaluation Comments Posture Comments Standing posture in socks: right shoulder mildly lower than the left, B forward, mild Dowager's hump and decreased thoracic kyphosis, more forward on left shoulder, right convexity lower thoracic spine, mild elevated right iliac crest but not much, left adductor attachment more tight than the right PT-OP-K Range of Motion Start: 10/05/24 17:00 Freq: Status: Active Protocol: Document 10/06/24 08:59 MB (Rec: 10/06/24 09:37 MB [id number]) Cervical Spine Range of Motion Cervical Spine Active Testing Position Standing Flexion 40 Extension 30 Rotation Left 60 Rotation Right 60 Lateral Flexion Left 25 Lateral Flexion Right 30 Comments Prefers flexion overpressure in standing, pt's head rests in mild left rotation and right side bend, tends to keep head in mild extension, B elevated and stiff shoulders, feels like lump in front of right throat Shoulder Goniometric Range of Motion Shoulder Bilateral Shoulder ROM WFL Yes Testing Position Standing PT-OP-M Strength Start: 10/05/24 17:00 Freq: Status: Active Protocol: Document 10/06/24 08:59 MB (Rec: 10/06/24 16:54 MB [id number]) Shoulder Strength Shoulder Manual Muscle Testing Bilateral Flexion 5 Normal Abduction (C5) 5 Normal External Rotation 5 Normal Internal Rotation 5 Normal PT-OP-Q Treatments Start: 10/05/24 17:00 Freq: Status: Active Protocol: Document 11/04/24 09:04 SP (Rec: 11/04/24 09:50 SP [id number]) Therapeutic Exercises Supine Exercises 6 foam roller exercise Supine Exercise Name Reviewed: Pec stretch with breath then FF, HABD, W stretch, 1/2 X (CS rot) Side bilateral Equipment Used 1/2 foam roller (every 6 not available today ) Reps/Minutes 10 reps AROM exercises Comments Feet bent, pelvic tilt and core tight, head on foam roller Sidelying Exercises open book Sidelying Exercise Name Reviewed Side bilateral Equipment Used 6 foam roller between legs, pillow doubled under head Reps/Minutes 6 reps each side Comments Tighter left shoulder Sitting Exercises Scapular Retraction Sitting Exercise Name added to HEP with TB, provided HO Side bilateral Resistance Tb #1 Reps/Minutes 10 reps Comments cued TA, no LB arch. Standing Exercises 3 Standing Exercise Name wall slides: Ys with lift off wall (provided HO) Side bilateral Resistance Tb #1 Reps/Minutes 10 Comments cued TA, LT fac, no LB arch- good response Other Exercises Self STMs Other Exercise Name verbal review self STMs use theracane use neck, ball post scap on ball Comments review performance next tx: theracane MWM posterior neck Manual Therapy Treatment Consent Patient gave verbal consent for manual Yes treatment Other Other Manual Treatments Pt hooklying STMs: UT, SOR, head temporalis/occipitalis MFR, ENERGY PROJECTS LEAD: Parietial/Frontal/ Sphenoid/temporal/mandible decompression. Prone: manual thoracic spine recoil with breath, B scapular mobs PT-OP-T Assessment and Plan Start: 10/05/24 17:00 Freq: Status: Active Protocol: Document 11/04/24 09:04 SP (Rec: 11/04/24 09:50 SP [id number]) Physical Therapy Assessment Goals 2 Impairment Lack of HEP Hazardous Materials Waste Technician Goal (LTG) Pt will perform progressive HEP with I including breathing , relaxation, postural, intrascapular, shoulder and core strengthening and balance exercises to improve fascial mobility, pain and sleep. 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 11/02/24: Pt reports no improvement of headaches since starting PT LTG Duration 8 weeks Assessment Summary Assessment Pt good feedback decreased head and neck tension after manual, ed self performance support support decreased headaches. Progressed scapular strengthening added resisted shld retraction & humeral ER and light band Y wall slides with lift off wall to support posture no pain. Good understanding ed can perform self STMs head for support decrease headaches if found beneficial today. Physical Therapy Plan Frequency and Duration Frequency of Treatment 1-2x/wk Duration of treatment (weeks) 8 Plan of Care Start Date 10/06/24 Plan of Care End Date 12/08/24 Therapeutic Interventions Therapeutic Interventions Balance Training,Canalithic Repositioning,Home Exercise Program,Joint Mobilizations, Manual Therapy,Neuromuscular Re-education,Patient/Caregiver Education,Self-Care/Home Management,Soft Tissue Mobilization,Taping, Therapeutic Activities, Therapeutic Exercises Modalities Cold Pack/Ice Massage,Electric Stimulation,Hot Packs, Ultrasound Next Visit Focus/Plan Next Note Type Treatment Note Next Visit Plan Con't manual work and consider taping mouth during and working on nasal breathing, Continue side lying treatment/ rib recoil Progressive postural training, thoracic mobility exercises, strengthening for intrascapular muscles and shoulders, chin tuck, ergonomic education
--- NOTE | 2024-11-09 15:59 | PT.OTN ---
Current Diagnoses Cervicogenic headache (11/09/24) Physical Therapy Treatment Note PT-OP-A Visit Information Start: 10/05/24 17:00 Freq: Status: Active Protocol: Document 11/09/24 15:18 MB (Rec: 11/09/24 15:59 MB Desktop) Out-Patient Physical Therapy Visit Information Visit Information Visit Type Treatment Note Visit Start Time 15:18 Visit Stop Time 15:58 Visit Number 9 Number of CLASSIFICATION AND TREATMENT DIRECTOR Visits 0 Evaluation Information Evaluation Date 10/06/24 Precautions Precautions none PT-OP-B Current Condition Start: 10/05/24 17:00 Freq: Status: Active Protocol: Document 10/06/24 08:59 MB (Rec: 10/06/24 09:37 MB [id number]) Current Condition History of Current Condition Onset Date 5 years ago Current Complaints Posterior head pain and left ear coldness History of Current Condition Pt had PT in the past and it went well except she injured herself doing the exercises. She might have taken exercises too extreme. She self-dx herself with cervicogenic headache. 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 She went to PT for the groin and it did not help. Her life changed with the pandemic. Pt reports a history of headaches her whole life. They were premenstral and also tension heachaches and headaches up the back of her head. Pt reports left ear cold with headaches. Pt notices postural changes sitting at the computer. Pt sits most of the day at the computer. Pain moves into her left eyeball and she does get nauseated. She is sleeping on her side and back. Pt has tried body work including structural work and myofascial release. Pt had x-rays of cervical spine with findings of mild degeneration. Pt denies changes in dentition , TMJ. She did have a CPAP and she stopped using it d/t she felt she was getting worse sleep. 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 She is using front of teeth bite guard at night. She said she made a groove in it. Pt's vision has not changed. Pt does not report paresthesias on face or in UEs. Headaches start in the early hours of the morning . She notices she awakens in odd sleeping positions such as head extension. She does share bed with partner. PMH includes ACL, uterine fibroid embolism, B mastectomy and breast reconstruction surgeries. She has large scar where soft tissue and skin were moved from abdomen. Treatment Goals Patient/Caregiver Goals To get rid of headaches PT-OP-C Subjective Start: 10/05/24 17:00 Freq: Status: Active Protocol: Document 11/09/24 15:18 MB (Rec: 11/09/24 15:59 MB Desktop) OP-PT Subjective Patient Comments Patient Comments Pt states that she felt pretty good after last two PT treatments and then she felt a headache coming on on Friday. She took ibuprofen and it got better. Her neck felt sore since Friday and yesterday, she felt fatigue and multi-joint soreness yesterday. PT-OP-J Posture/Palpation/Skin Start: 10/05/24 17:00 Freq: Status: Active Protocol: Document 10/06/24 08:59 MB (Rec: 10/06/24 09:37 MB [id number]) Posture Evaluation Comments Posture Comments Standing posture in socks: right shoulder mildly lower than the left, B forward, mild Dowager's hump and decreased thoracic kyphosis, more forward on left shoulder, right convexity lower thoracic spine, mild elevated right iliac crest but not much, left adductor attachment more tight than the right PT-OP-K Range of Motion Start: 10/05/24 17:00 Freq: Status: Active Protocol: Document 10/06/24 08:59 MB (Rec: 10/06/24 09:37 MB [id number]) Cervical Spine Range of Motion Cervical Spine Active Testing Position Standing Flexion 40 Extension 30 Rotation Left 60 Rotation Right 60 Lateral Flexion Left 25 Lateral Flexion Right 30 Comments Prefers flexion overpressure in standing, pt's head rests in mild left rotation and right side bend, tends to keep head in mild extension, B elevated and stiff shoulders, feels like lump in front of right throat Shoulder Goniometric Range of Motion Shoulder Bilateral Shoulder ROM WFL Yes Testing Position Standing PT-OP-M Strength Start: 10/05/24 17:00 Freq: Status: Active Protocol: Document 10/06/24 08:59 MB (Rec: 10/06/24 16:54 MB [id number]) Shoulder Strength Shoulder Manual Muscle Testing Bilateral Flexion 5 Normal Abduction (C5) 5 Normal External Rotation 5 Normal Internal Rotation 5 Normal PT-OP-Q Treatments Start: 10/05/24 17:00 Freq: Status: Active Protocol: Document 11/09/24 15:18 MB (Rec: 11/09/24 15:59 MB Desktop) Therapeutic Exercises Sitting Exercises Sitting thread the needle stretch with heavy cranium Sitting Exercise Name HEP, no handout available Side bilateral Reps/Minutes 1 prolonged rep each side Comments Cross one arm under, go opp hip and rotate head to hip Standing Exercises Racquet ball massage Standing Exercise Name HEP and handout given today Comments Upper traps, intrascapular muscle massage Standing modified cat/cow Standing Exercise Name HEP and handout given today Reps/Minutes Several reps Comments Cues for no neck pain, think about thoracic mobility Manual Therapy Treatment Consent Patient gave verbal consent for manual Yes treatment Other Other Manual Treatments Pt prone: rib recoil in prone to help mobilize ribs, muscle energy techniques, STM and positional release upper traps , infra, levator, intrascapular muscles PT-OP-T Assessment and Plan Start: 10/05/24 17:00 Freq: Status: Active Protocol: Document 11/09/24 15:18 MB (Rec: 11/09/24 15:59 MB Desktop) Physical Therapy Assessment Rehab Potential Rehabilitation Potential Good Evaluation Complexity Number of Personal Factors/Comorbidities 1-2 Number of Body Systems Impaired 1-2 Clinical Presentation at Evaluation Evolving Impairments Impairments Edema,Pain,Posture,ROM,Soft Tissue Mobility Goals 2 Impairment Lack of HEP Retail Sales Lead Goal (LTG) Pt will perform progressive HEP with I including breathing , relaxation, postural, intrascapular, shoulder and core strengthening and balance exercises to improve fascial mobility, pain and sleep. 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 11/02/24: Pt reports no improvement of headaches since starting PT LTG Duration 8 weeks Assessment Summary Assessment Pt does look less shoulders to ear lobe than when first met PT. She can self-correct better as well. Physical Therapy Plan Frequency and Duration Frequency of Treatment 1-2x/wk Duration of treatment (weeks) 8 Plan of Care Start Date 10/06/24 Plan of Care End Date 12/08/24 Therapeutic Interventions Therapeutic Interventions Balance Training,Canalithic Repositioning,Home Exercise Program,Joint Mobilizations, Manual Therapy,Neuromuscular Re-education,Patient/Caregiver Education,Self-Care/Home Management,Soft Tissue Mobilization,Taping, Therapeutic Activities, Therapeutic Exercises Modalities Cold Pack/Ice Massage,Electric Stimulation,Hot Packs, Ultrasound Next Visit Focus/Plan Next Note Type Treatment Note Next Visit Plan Con't manual work and thoracic mobility, strengthening for intrascapular muscles and shoulders, chin tuck, ergonomic education
--- NOTE | 2024-11-23 16:14 | PT.OTN ---
Current Diagnoses Cervicogenic headache (11/23/24) Physical Therapy Treatment Note PT-OP-A Visit Information Start: 10/05/24 17:00 Freq: Status: Active Protocol: Document 11/23/24 15:15 MB (Rec: 11/23/24 16:14 MB Desktop) Out-Patient Physical Therapy Visit Information Visit Information Visit Type Treatment Note Visit Note Progress note next treatment on 11/30 Visit Start Time 15:15 Visit Stop Time 15:55 Visit Number 10 Number of SUPPLIER DIVERSITY DIRECTOR Visits 0 Evaluation Information Evaluation Date 10/06/24 Precautions Precautions none PT-OP-B Current Condition Start: 10/05/24 17:00 Freq: Status: Active Protocol: Document 10/06/24 08:59 MB (Rec: 10/06/24 09:37 MB [id number]) Current Condition History of Current Condition Onset Date 5 years ago Current Complaints Posterior head pain and left ear coldness History of Current Condition Pt had PT in the past and it went well except she injured herself doing the exercises. She might have taken exercises too extreme. She self-dx herself with cervicogenic headache. 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 She went to PT for the groin and it did not help. Her life changed with the pandemic. Pt reports a history of headaches her whole life. They were premenstral and also tension heachaches and headaches up the back of her head. Pt reports left ear cold with headaches. Pt notices postural changes sitting at the computer. Pt sits most of the day at the computer. Pain moves into her left eyeball and she does get nauseated. She is sleeping on her side and back. Pt has tried body work including structural work and myofascial release. Pt had x-rays of cervical spine with findings of mild degeneration. Pt denies changes in dentition , TMJ. She did have a CPAP and she stopped using it d/t she felt she was getting worse sleep. 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 She is using front of teeth bite guard at night. She said she made a groove in it. Pt's vision has not changed. Pt does not report paresthesias on face or in UEs. Headaches start in the early hours of the morning . She notices she awakens in odd sleeping positions such as head extension. She does share bed with partner. PMH includes ACL, uterine fibroid embolism, B mastectomy and breast reconstruction surgeries. She has large scar where soft tissue and skin were moved from abdomen. Treatment Goals Patient/Caregiver Goals To get rid of headaches PT-OP-C Subjective Start: 10/05/24 17:00 Freq: Status: Active Protocol: Document 11/23/24 15:15 MB (Rec: 11/23/24 16:14 MB Desktop) OP-PT Subjective Patient Comments Patient Comments Pt reports that it seems she has more headaches on Friday mornings. She also has some on Mondays. She stretched her neck Friday and got the headache to go away. No other correlations with headaches. Maybe her posture is a little better. PT-OP-J Posture/Palpation/Skin Start: 10/05/24 17:00 Freq: Status: Active Protocol: Document 10/06/24 08:59 MB (Rec: 10/06/24 09:37 MB [id number]) Posture Evaluation Comments Posture Comments Standing posture in socks: right shoulder mildly lower than the left, B forward, mild Dowager's hump and decreased thoracic kyphosis, more forward on left shoulder, right convexity lower thoracic spine, mild elevated right iliac crest but not much, left adductor attachment more tight than the right PT-OP-K Range of Motion Start: 10/05/24 17:00 Freq: Status: Active Protocol: Document 10/06/24 08:59 MB (Rec: 10/06/24 09:37 MB [id number]) Cervical Spine Range of Motion Cervical Spine Active Testing Position Standing Flexion 40 Extension 30 Rotation Left 60 Rotation Right 60 Lateral Flexion Left 25 Lateral Flexion Right 30 Comments Prefers flexion overpressure in standing, pt's head rests in mild left rotation and right side bend, tends to keep head in mild extension, B elevated and stiff shoulders, feels like lump in front of right throat Shoulder Goniometric Range of Motion Shoulder Bilateral Shoulder ROM WFL Yes Testing Position Standing PT-OP-M Strength Start: 10/05/24 17:00 Freq: Status: Active Protocol: Document 10/06/24 08:59 MB (Rec: 10/06/24 16:54 MB [id number]) Shoulder Strength Shoulder Manual Muscle Testing Bilateral Flexion 5 Normal Abduction (C5) 5 Normal External Rotation 5 Normal Internal Rotation 5 Normal PT-OP-Q Treatments Start: 10/05/24 17:00 Freq: Status: Active Protocol: Document 11/23/24 15:15 MB (Rec: 11/23/24 16:14 MB Desktop) Manual Therapy Treatment Consent Patient gave verbal consent for manual Yes treatment Other Other Manual Treatments Pt in B side lying: STM and very gentle rib mobs: STM QL, paraspinals, upper traps, levator, middle scalene, pt supine: B first rib mobs with left first rib isometric mob, gentle mobilization and upglides, grade II, upper cervical spine, C1-2 PT-OP-T Assessment and Plan Start: 10/05/24 17:00 Freq: Status: Active Protocol: Document 11/23/24 15:15 MB (Rec: 11/23/24 16:14 MB Desktop) Physical Therapy Assessment Rehab Potential Rehabilitation Potential Good Evaluation Complexity Number of Personal Factors/Comorbidities 1-2 Number of Body Systems Impaired 1-2 Clinical Presentation at Evaluation Evolving Impairments Impairments Edema,Pain,Posture,ROM,Soft Tissue Mobility Goals 2 Impairment Lack of HEP Movie Actor Goal (LTG) Pt will perform progressive HEP with I including breathing , relaxation, postural, intrascapular, shoulder and core strengthening and balance exercises to improve fascial mobility, pain and sleep. 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 11/02/24: Pt reports no improvement of headaches since starting PT LTG Duration 8 weeks Assessment Summary Assessment Verbal review of many exercises and so did not add more today. B side lying work today. Physical Therapy Plan Frequency and Duration Frequency of Treatment 1-2x/wk Duration of treatment (weeks) 8 Plan of Care Start Date 10/06/24 Plan of Care End Date 12/08/24 Therapeutic Interventions Therapeutic Interventions Balance Training,Canalithic Repositioning,Home Exercise Program,Joint Mobilizations, Manual Therapy,Neuromuscular Re-education,Patient/Caregiver Education,Self-Care/Home Management,Soft Tissue Mobilization,Taping, Therapeutic Activities, Therapeutic Exercises Modalities Cold Pack/Ice Massage,Electric Stimulation,Hot Packs, Ultrasound Next Visit Focus/Plan Next Note Type Treatment Note Next Visit Plan Con't manual work and thoracic mobility, strengthening for intrascapular muscles and shoulders, chin tuck, ergonomic education, pt will d /c in 3 treatments and so add in what is helpful for pt
--- NOTE | 2024-11-30 15:59 | PT.OTN ---
Current Diagnoses Cervicogenic headache (11/30/24) Physical Therapy Treatment Note PT-OP-A Visit Information Start: 10/05/24 17:00 Freq: Status: Active Protocol: Document 11/30/24 15:17 MB (Rec: 11/30/24 15:58 MB Desktop) Out-Patient Physical Therapy Visit Information Visit Information Visit Type Progress Note Visit Start Time 15:17 Visit Stop Time 15:57 Visit Number 11 Number of ANIMAL GROOMER Visits 0 Evaluation Information Evaluation Date 10/06/24 Precautions Precautions none PT-OP-B Current Condition Start: 10/05/24 17:00 Freq: Status: Active Protocol: Document 10/06/24 08:59 MB (Rec: 10/06/24 09:37 MB [id number]) Current Condition History of Current Condition Onset Date 5 years ago Current Complaints Posterior head pain and left ear coldness History of Current Condition Pt had PT in the past and it went well except she injured herself doing the exercises. She might have taken exercises too extreme. She self-dx herself with cervicogenic headache. 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 She went to PT for the groin and it did not help. Her life changed with the pandemic. Pt reports a history of headaches her whole life. They were premenstral and also tension heachaches and headaches up the back of her head. Pt reports left ear cold with headaches. Pt notices postural changes sitting at the computer. Pt sits most of the day at the computer. Pain moves into her left eyeball and she does get nauseated. She is sleeping on her side and back. Pt has tried body work including structural work and myofascial release. Pt had x-rays of cervical spine with findings of mild degeneration. Pt denies changes in dentition , TMJ. She did have a CPAP and she stopped using it d/t she felt she was getting worse sleep. 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 She is using front of teeth bite guard at night. She said she made a groove in it. Pt's vision has not changed. Pt does not report paresthesias on face or in UEs. Headaches start in the early hours of the morning . She notices she awakens in odd sleeping positions such as head extension. She does share bed with partner. PMH includes ACL, uterine fibroid embolism, B mastectomy and breast reconstruction surgeries. She has large scar where soft tissue and skin were moved from abdomen. Treatment Goals Patient/Caregiver Goals To get rid of headaches PT-OP-C Subjective Start: 10/05/24 17:00 Freq: Status: Active Protocol: Document 11/30/24 15:17 MB (Rec: 11/30/24 15:58 MB Desktop) OP-PT Subjective Patient Comments Patient Comments Pt felt a lot better after last treatment and could turn her head right and left. She has not had a headache since the previous Friday, in about 10 days. PT-OP-J Posture/Palpation/Skin Start: 10/05/24 17:00 Freq: Status: Active Protocol: Document 10/06/24 08:59 MB (Rec: 10/06/24 09:37 MB [id number]) Posture Evaluation Comments Posture Comments Standing posture in socks: right shoulder mildly lower than the left, B forward, mild Dowager's hump and decreased thoracic kyphosis, more forward on left shoulder, right convexity lower thoracic spine, mild elevated right iliac crest but not much, left adductor attachment more tight than the right PT-OP-K Range of Motion Start: 10/05/24 17:00 Freq: Status: Active Protocol: Document 10/06/24 08:59 MB (Rec: 10/06/24 09:37 MB [id number]) Cervical Spine Range of Motion Cervical Spine Active Testing Position Standing Flexion 40 Extension 30 Rotation Left 60 Rotation Right 60 Lateral Flexion Left 25 Lateral Flexion Right 30 Comments Prefers flexion overpressure in standing, pt's head rests in mild left rotation and right side bend, tends to keep head in mild extension, B elevated and stiff shoulders, feels like lump in front of right throat Shoulder Goniometric Range of Motion Shoulder Bilateral Shoulder ROM WFL Yes Testing Position Standing PT-OP-M Strength Start: 10/05/24 17:00 Freq: Status: Active Protocol: Document 10/06/24 08:59 MB (Rec: 10/06/24 16:54 MB [id number]) Shoulder Strength Shoulder Manual Muscle Testing Bilateral Flexion 5 Normal Abduction (C5) 5 Normal External Rotation 5 Normal Internal Rotation 5 Normal PT-OP-Q Treatments Start: 10/05/24 17:00 Freq: Status: Active Protocol: Document 11/30/24 15:17 MB (Rec: 11/30/24 15:58 MB Desktop) Therapeutic Exercises Supine Exercises 6 foam roller exercise Supine Exercise Name Performed over pool noodle today to help rib Side bilateral Equipment Used Red pool noodle Reps/Minutes Several reps Comments AROM flex, hor abd, 1/2x, pect stretch, added resistance to AROM Buteyko breathing Comments Pt always breathes through nose, no noticeable changes Sidelying Exercises open book Sidelying Exercise Name Reviewed from HEP Reps/Minutes 5 reps each side Comments End-range stretch with elbow bent for stretch Standing Exercises Racquet ball massage Standing Exercise Name Verbal review today Standing modified cat/cow Standing Exercise Name Verbal review today Other Exercises HEP review Other Exercise Name Pt demo ER in standing and overhead retraction in standing Resistance Level 2 band Comments Verbal review standing scapular retraction band ex Manual Therapy Treatment Consent Patient gave verbal consent for manual Yes treatment Other Other Manual Treatments Pt in B side lying: STM and very gentle rib mobs: STM QL, paraspinals, upper traps, levator, pt supine: right first rib isometric mob, gentle mobilization and upglides, grade II, upper cervical spine, C1-2 PT-OP-T Assessment and Plan Start: 10/05/24 17:00 Freq: Status: Active Protocol: Document 11/30/24 15:17 MB (Rec: 11/30/24 15:58 MB Desktop) Physical Therapy Assessment Rehab Potential Rehabilitation Potential Good Evaluation Complexity Number of Personal Factors/Comorbidities 1-2 Number of Body Systems Impaired 1-2 Clinical Presentation at Evaluation Evolving Impairments Impairments Edema,Pain,Posture,ROM,Soft Tissue Mobility Goals 2 Impairment Lack of HEP Assisted Goal (LTG) Pt will perform progressive HEP with I including breathing , relaxation, postural, intrascapular, shoulder and core strengthening and balance exercises to improve fascial mobility, pain and sleep. 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 4/29/25: Pt reports no improvement of headaches since starting PT 11/30/24: Pt has had 10 days with no headache, and so this is an improvement LTG Duration 8 weeks Assessment Summary Assessment HEP review today and manual work. Con't per plan last two treatments. Physical Therapy Plan Frequency and Duration Frequency of Treatment 1-2x/wk Duration of treatment (weeks) 8 Plan of Care Start Date 10/06/24 Plan of Care End Date 12/08/24 Therapeutic Interventions Therapeutic Interventions Balance Training,Canalithic Repositioning,Home Exercise Program,Joint Mobilizations, Manual Therapy,Neuromuscular Re-education,Patient/Caregiver Education,Self-Care/Home Management,Soft Tissue Mobilization,Taping, Therapeutic Activities, Therapeutic Exercises Modalities Cold Pack/Ice Massage,Electric Stimulation,Hot Packs, Ultrasound Next Visit Focus/Plan Next Note Type Treatment Note Next Visit Plan Con't manual work and consider a few more standing band exercises such as reverse fly, scapular retraction with triceps extension and multifidi press out
--- NOTE | 2024-12-07 16:14 | PT.OTN ---
Current Diagnoses Cervicogenic headache (12/07/24) Physical Therapy Treatment Note PT-OP-A Visit Information Start: 10/05/24 17:00 Freq: Status: Active Protocol: Document 12/07/24 15:20 MB (Rec: 12/07/24 16:14 MB Desktop) Out-Patient Physical Therapy Visit Information Visit Information Visit Type Treatment Note Visit Start Time 15:20 Visit Stop Time 16:00 Visit Number 12 Number of COMPOUND MIXER Visits 0 Evaluation Information Evaluation Date 10/06/24 Precautions Precautions none PT-OP-B Current Condition Start: 10/05/24 17:00 Freq: Status: Active Protocol: Document 10/06/24 08:59 MB (Rec: 10/06/24 09:37 MB [id number]) Current Condition History of Current Condition Onset Date 5 years ago Current Complaints Posterior head pain and left ear coldness History of Current Pt had PT in the past and it went well except she Condition injured herself doing the exercises. She might have taken exercises too extreme. She self-dx herself with cervicogenic headache. 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 She went to PT for the groin and it did not help. Her life changed with the pandemic. Pt reports a history of headaches her whole life. They were premenstral and also tension heachaches and headaches up the back of her head. Pt reports left ear cold with headaches. Pt notices postural changes sitting at the computer. Pt sits most of the day at the computer. Pain moves into her left eyeball and she does get nauseated. She is sleeping on her side and back. Pt has tried body work including structural work and myofascial release. Pt had x-rays of cervical spine with findings of mild degeneration. Pt denies changes in dentition, TMJ. She did have a CPAP and she stopped using it d/t she felt she was getting worse sleep. 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 She is using front of teeth bite guard at night. She said she made a groove in it. Pt's vision has not changed. Pt does not report paresthesias on face or in UEs. Headaches start in the early hours of the morning. She notices she awakens in odd sleeping positions such as head extension. She does share bed with partner. PMH includes ACL, uterine fibroid embolism, B mastectomy and breast reconstruction surgeries. She has large scar where soft tissue and skin were moved from abdomen. Treatment Goals Patient/Caregiver To get rid of headaches Goals PT-OP-C Subjective Start: 10/05/24 17:00 Freq: Status: Active Protocol: Document 12/07/24 15:20 MB (Rec: 12/07/24 16:14 MB Desktop) OP-PT Subjective Patient Comments Patient Comments Pt was doing well and then she had a HAAS yesterday morning. That was about 17 days without a headache. It was a 4/10 most of the day. PT-OP-J Posture/Palpation/Skin Start: 10/05/24 17:00 Freq: Status: Active Protocol: Document 10/06/24 08:59 MB (Rec: 10/06/24 09:37 MB [id number]) Posture Evaluation Comments Posture Comments Standing posture in socks: right shoulder mildly lower than the left, B forward, mild Dowager's hump and decreased thoracic kyphosis, more forward on left shoulder, right convexity lower thoracic spine, mild elevated right iliac crest but not much, left adductor attachment more tight than the right PT-OP-K Range of Motion Start: 10/05/24 17:00 Freq: Status: Active Protocol: Document 10/06/24 08:59 MB (Rec: 10/06/24 09:37 MB [id number]) Cervical Spine Range of Motion Cervical Spine Active Testing Position Standing Flexion 40 Extension 30 Rotation Left 60 Rotation Right 60 Lateral Flexion Left 25 Lateral Flexion 30 Right Comments Prefers flexion overpressure in standing, pt's head rests in mild left rotation and right side bend, tends to keep head in mild extension, B elevated and stiff shoulders, feels like lump in front of right throat Shoulder Goniometric Range of Motion Shoulder Bilateral Shoulder ROM WFL Yes Testing Position Standing PT-OP-M Strength Start: 10/05/24 17:00 Freq: Status: Active Protocol: Document 10/06/24 08:59 MB (Rec: 10/06/24 16:54 MB [id number]) Shoulder Strength Shoulder Manual Muscle Testing Bilateral Flexion 5 Normal Abduction (C5) 5 Normal External Rotation 5 Normal Internal Rotation 5 Normal PT-OP-Q Treatments Start: 10/05/24 17:00 Freq: Status: Active Protocol: Document 12/07/24 15:20 MB (Rec: 12/07/24 16:14 MB Desktop) Therapeutic Exercises Standing Exercises Over the door pull down and triceps, reverse fly, multifidi push out Standing Exercise HEP and handouts today Name Side bilateral Resistance Green band Reps/Minutes Many reps for cues Comments Performed all with cues Manual Therapy Treatment Consent Patient gave verbal Yes consent for manual treatment Other Other Manual Pt supine with head and legs supported and grade II-III Treatments cervical upglides and mobs, STM B upper traps, pects, positional release posterior ribs, external massage B masseter and SCM Self-Care/Home Management Treatment Education Patient Education Body Mechanics,Joint Protection,Pain Management,Posture Other Education See assessment for comments today PT-OP-T Assessment and Plan Start: 10/05/24 17:00 Freq: Status: Active Protocol: Document 12/07/24 15:20 MB (Rec: 12/07/24 16:14 MB Desktop) Physical Therapy Assessment Rehab Potential Rehabilitation Good Potential Evaluation Complexity Number of Personal 1-2 Factors/ Comorbidities Number of Body 1-2 Systems Impaired Clinical Evolving Presentation at Evaluation Impairments Impairments Edema,Pain,Posture,ROM,Soft Tissue Mobility Goals 2 Impairment Lack of HEP Senior Living Goal (LTG) Pt will perform progressive HEP with I including breathing, relaxation, postural, intrascapular, shoulder and core strengthening and balance exercises to improve fascial mobility, pain and sleep. 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 11/02/24: Pt reports no improvement of headaches since starting PT 11/30/24: Pt has had 10 days with no headache, and so this is an improvement LTG Duration 8 weeks Assessment Summary Assessment Progressed exercises today and discussed TMJ and dental contributions to cervicogenic headaches and re-ed pt on benefits of trying taping mouth to decrease TMJ tension and promote tongue to roof of mouth rather than using her mouth guard. Pt heads to the dentist and also ed on cervical support. Pt with increased tension B pects and left cervical spine today, right posterior ribs. Physical Therapy Plan Frequency and Duration Frequency of 1-2x/wk Treatment Duration of 8 treatment (weeks) Plan of Care Start 10/06/24 Date Plan of Care End 12/08/24 Date Therapeutic Interventions Therapeutic Balance Training,Canalithic Repositioning,Home Exercise Interventions Program,Joint Mobilizations,Manual Therapy, Neuromuscular Re-education,Patient/Caregiver Education, Self-Care/Home Management,Soft Tissue Mobilization, Taping,Therapeutic Activities,Therapeutic Exercises Modalities Cold Pack/Ice Massage,Electric Stimulation,Hot Packs, Ultrasound Next Visit Focus/Plan Next Note Type Discharge Summary Next Visit Plan Review goals and HEP and manual work as needed
--- NOTE | 2024-12-15 16:16 | PT.OTN ---
Current Diagnoses Cervicogenic headache (12/15/24) Physical Therapy Treatment Note PT-OP-A Visit Information Start: 10/05/24 17:00 Freq: Status: Active Protocol: Document 12/15/24 15:33 MB (Rec: 12/15/24 16:07 MB Desktop) Out-Patient Physical Therapy Visit Information Visit Information Visit Type Treatment Note Visit Start Time 15:33 Visit Stop Time 16:13 Visit Number 13 Number of [employer] Visits 0 Evaluation Information Evaluation Date 10/06/24 Precautions Precautions B mastectomy, no BP right UE PT-OP-B Current Condition Start: 10/05/24 17:00 Freq: Status: Active Protocol: Document 10/06/24 08:59 MB (Rec: 10/06/24 09:37 MB [id number]) Current Condition History of Current Condition Onset Date 5 years ago Current Complaints Posterior head pain and left ear coldness History of Current Pt had PT in the past and it went well except she Condition injured herself doing the exercises. She might have taken exercises too extreme. She self-dx herself with cervicogenic headache. 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 She went to PT for the groin and it did not help. Her life changed with the pandemic. Pt reports a history of headaches her whole life. They were premenstral and also tension heachaches and headaches up the back of her head. Pt reports left ear cold with headaches. Pt notices postural changes sitting at the computer. Pt sits most of the day at the computer. Pain moves into her left eyeball and she does get nauseated. She is sleeping on her side and back. Pt has tried body work including structural work and myofascial release. Pt had x-rays of cervical spine with findings of mild degeneration. Pt denies changes in dentition, TMJ. She did have a CPAP and she stopped using it d/t she felt she was getting worse sleep. 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 She is using front of teeth bite guard at night. She said she made a groove in it. Pt's vision has not changed. Pt does not report paresthesias on face or in UEs. Headaches start in the early hours of the morning. She notices she awakens in odd sleeping positions such as head extension. She does share bed with partner. PMH includes ACL, uterine fibroid embolism, B mastectomy and breast reconstruction surgeries. She has large scar where soft tissue and skin were moved from abdomen. Treatment Goals Patient/Caregiver To get rid of headaches Goals PT-OP-C Subjective Start: 10/05/24 17:00 Freq: Status: Active Protocol: Document 12/15/24 15:33 MB (Rec: 12/15/24 16:07 MB Desktop) OP-PT Subjective Patient Comments Patient Comments Pt has not had a headache in 10 days. PT-OP-J Posture/Palpation/Skin Start: 10/05/24 17:00 Freq: Status: Active Protocol: Document 10/06/24 08:59 MB (Rec: 10/06/24 09:37 MB [id number]) Posture Evaluation Comments Posture Comments Standing posture in socks: right shoulder mildly lower than the left, B forward, mild Dowager's hump and decreased thoracic kyphosis, more forward on left shoulder, right convexity lower thoracic spine, mild elevated right iliac crest but not much, left adductor attachment more tight than the right PT-OP-K Range of Motion Start: 10/05/24 17:00 Freq: Status: Active Protocol: Document 10/06/24 08:59 MB (Rec: 10/06/24 09:37 MB [id number]) Cervical Spine Range of Motion Cervical Spine Active Testing Position Standing Flexion 40 Extension 30 Rotation Left 60 Rotation Right 60 Lateral Flexion Left 25 Lateral Flexion 30 Right Comments Prefers flexion overpressure in standing, pt's head rests in mild left rotation and right side bend, tends to keep head in mild extension, B elevated and stiff shoulders, feels like lump in front of right throat Shoulder Goniometric Range of Motion Shoulder Bilateral Shoulder ROM WFL Yes Testing Position Standing PT-OP-M Strength Start: 10/05/24 17:00 Freq: Status: Active Protocol: Document 10/06/24 08:59 MB (Rec: 10/06/24 16:54 MB [id number]) Shoulder Strength Shoulder Manual Muscle Testing Bilateral Flexion 5 Normal Abduction (C5) 5 Normal External Rotation 5 Normal Internal Rotation 5 Normal PT-OP-Q Treatments Start: 10/05/24 17:00 Freq: Status: Active Protocol: Document 12/15/24 15:33 MB (Rec: 12/15/24 16:07 MB Desktop) Manual Therapy Treatment Consent Patient gave verbal Yes consent for manual treatment Other Other Manual Pt prone: rib recoil for rib mobility, muscle energy Treatments technique for paraspinals, STM B upper traps and infra with most tension in left infra Pt supine with head and legs supported and grade II-III cervical upglides and mobs, STM B upper traps, pects, suboccipital release, positional release posterior ribs , external massage B masseter and SCM PT-OP-T Assessment and Plan Start: 10/05/24 17:00 Freq: Status: Active Protocol: Document 12/15/24 15:33 MB (Rec: 12/15/24 16:07 MB Desktop) Physical Therapy Assessment Rehab Potential Rehabilitation Good Potential Evaluation Complexity Number of Personal 1-2 Factors/ Comorbidities Number of Body 1-2 Systems Impaired Clinical Evolving Presentation at Evaluation Impairments Impairments Edema,Pain,Posture,ROM,Soft Tissue Mobility Goals 2 Impairment Lack of HEP Giving Officer Goal (LTG) Pt will perform progressive HEP with I including breathing, relaxation, postural, intrascapular, shoulder and core strengthening and balance exercises to improve fascial mobility, pain and sleep. 11/02/24: Pt has been doing breathing exercises, band exercises, foam roller exercises 11/30/24: Pt has been doing breathing exercises and band exercises, open book and she has not been doing foam roller exercises because it irritates her broken rib on the left 12/15/24: Pt is performing exercises and divides them as needed, no concerns LTG Duration 8 weeks 1 Impairment Headaches awakening her tissue technologist Halfway Goal (LTG) Pt will report at least a 50% improvement in headaches awakening her tissue technologist to improve restorative rest to promote healing. 11/02/24: Pt reports no improvement of headaches since starting PT 11/30/24: Pt has had 10 days with no headache, and so this is an improvement 12/15/24: Pt reports she con't to have headaches every two weeks except for the one week when it was 17 days. She thinks the HAs have not been as severe. LTG Duration 8 weeks Assessment Summary Assessment Pt has plateaued with PT, will con't her HEP at d/c and is ready to d/c today. Physical Therapy Plan Frequency and Duration Frequency of 1-2x/wk Treatment Duration of 8 treatment (weeks) Plan of Care Start 10/06/24 Date Plan of Care End 12/08/24 Date Therapeutic Interventions Therapeutic Balance Training,Canalithic Repositioning,Home Exercise Interventions Program,Joint Mobilizations,Manual Therapy, Neuromuscular Re-education,Patient/Caregiver Education, Self-Care/Home Management,Soft Tissue Mobilization, Taping,Therapeutic Activities,Therapeutic Exercises Modalities Cold Pack/Ice Massage,Electric Stimulation,Hot Packs, Ultrasound Next Visit Focus/Plan Next Note Type Discharge Summary Next Visit Plan Review goals and HEP and manual work as needed
== END 2024-12-20 08:28 | disposition home or self-care (01) ==
LOC: PHYS 15:30
PROVIDERS: Family Provider Nurse Practitioner Family; PCP Nurse Practitioner Family; Referring Provider Nurse Practitioner Family; Visit Provider Nurse Practitioner Family
DX: G44.86 Cervicogenic headache (principal)
CPT/HCPCS: 97110; 97112; 97140; 97161; 97530; 97535